=== PATIENT | female | born 1975 | race Caucasian/White ===

== ENCOUNTER 2022-01-01 12:44 | Outpatient (CLI) | payer OTHER, SELFPAY ==
--- NOTE | ~2022-01-01 | XR_ITS ---
EXAMINATION: XR foot LT min 3V DATE: 01/01/2022 13:03 INDICATION: Left foot pain. TECHNIQUE: 4 views of left foot were obtained. COMPARISON: None. FINDINGS: Bone alignment is normal. There are comminuted extra-articular fractures of second and thir d distal phalanges. There is mild osteoarthritis of first metatarsophalangeal joint. There are enthes ophytes at the posterior and plantar aspects of calcaneal tuberosity. IMPRESSION: 1. Comminuted extra-articular fractures of second and third distal phalanges. Reviewed, dictated and finalized at location A.
== END 2022-01-01 12:45 ==
LOC: MICIMG 12:50
PROVIDERS: PCP Family Medicine; Visit Provider Family Medicine
DX: S92.532A Displaced fracture of distal phalanx of left lesser toe(s), initial encounter for closed fracture (principal); X58.XXXA Exposure to other specified factors, initial encounter
CPT/HCPCS: 73630